=== PATIENT | female | born 1975 | race Caucasian/White ===

== ENCOUNTER 2020-10-30 14:41 | Emergency (ER) | payer MEDICAID, OTHER ==
[~2020-10-30] VITALS: Ht 157.5 cm; Wt 59.0 kg
[2020-10-30 15:06] VITALS: BP 103/71
== END 2020-10-30 18:51 | disposition left against medical advice (07) ==
LOC: ER 14:41
DX: Z53.21 Procedure and treatment not carried out due to patient leaving prior to being seen by health care provider (principal); I49.9 Cardiac arrhythmia, unspecified
CPT/HCPCS: 93005

== ENCOUNTER 2020-11-09 22:21 | Emergency (ER) | payer OTHER | END 2020-11-09 23:32 | disposition left against medical advice (07) | LOC: ER 22:21 | DX: Z53.21 Procedure and treatment not carried out due to patient leaving prior to being seen by health care provider (principal) ==